=== PATIENT | male | born 1955 | race Caucasian/White ===

== ENCOUNTER 2023-07-13 00:21 | Day surgery (SDC) | payer MEDICARE, SELFPAY ==
[2023-07-06 14:36] VITALS: BMI 31.6
--- NOTE | 2023-07-12 09:39 | WPDANESEPPF ---
Anes - Initial Pre Proc Eval Procedure: Operation Date: 07/13/23 12:30 Proposed Procedures p Screening Colonoscopy - Jozef Castaneda MD Date/Time: 07/12/23 09:39 Surgeon: Jozef Castaneda MD Pre Op Diagnosis: neoplasm screening Patient Data Age: 67 Gender: M Height: 1.93 m Weight: 118 kg Allergies Allergy/AdvReac Type Severity Reaction Status Date / Time lisinopril Allergy Unknown Unknown Verified 07/13/23 11:06 Home Medications Medication Instructions Recorded Confirmed Type aspirin 81 mg tablet,delayed 81 mg PO DAILY 10/02/19 07/13/23 History release (Adult Low Dose Aspirin) irbesartan 150 1 tablet PO DAILY #90 tabs 10/02/20 07/13/23 Rx mg-hydrochlorothiazide 12.5 mg tablet Trulicity 1.5 mg/0.5 mL 1.5 mg (0.5 mL) subcut WEEKLY 90 10/07/20 07/13/23 Rx subcutaneous pen injector days #6 mL (dulaglutide) flash glucose sensor (FreeStyle #6 ea 10/07/20 07/06/23 Rx Tonio 14 Day Sensor kit) metformin 1,000 mg tablet 1,000 mg PO BID 90 days #180 tabs 10/17/20 07/13/23 Rx albuterol sulfate 90 mcg/actuation 2 puff inhalation Q4H PRN 10/23/20 07/13/23 Rx aerosol inhaler (Ventolin HFA) bronchospasm #8.5 grams glimepiride 2 mg tablet 2 mg PO BID 12/16/21 07/13/23 History atorvastatin 20 mg tablet 20 mg PO DAILY 07/06/23 07/13/23 History dapagliflozin propanediol 10 mg 10 mg PO DAILY 07/06/23 07/13/23 History tablet (Farxiga) famotidine 20 mg tablet 20 mg PO BID 07/06/23 07/13/23 History Patient hx anesthesia problems: none Family hx anesthesia problems: none Results Review: All pre-operative results and documents have been reviewed as part of the pre-operative evaluation. [facility] Past Medical History Medical History (Updated 07/13/23 @ 11:41 by Jozef Castaneda MD) Essential (primary) hypertension GERD (gastroesophageal reflux disease) Mixed hyperlipidemia Type 2 diabetes mellitus with hyperglycemia Surgical History Surgical History H/O arthroscopy of left knee (~1995) H/O arthroscopy of right knee (~2005) History of arthroscopy of shoulder (~2007) Family History Family History Mother Hypertension Family history of diabetes mellitus in first degree relative Diabetes mellitus Family history of cardiovascular disease Father Family history of malignant neoplasm of esophagus Sibling Diabetes mellitus Social History Social History Smoking status: Never smoker Tobacco type: smokeless tobacco Second hand tobacco smoke exposure: No Alcohol intake: current Substance use: never Substance use type: does not use Living arrangements: other Additional living arrangements comments: With jean Richard Final PreProcedure Day of Procedure 07/12/23 09:39 Patient weight: obese Heart: regular rate and rhythm Lungs: clear to auscultation Airway: Mallampati scale class II Neurological: alert and oriented Last oral intake: >/= 8 hours ASA classification: III Emergent: no Anesthetic plan: proceed Anesthesia type and monitoring: general GIVS and standard monitoring Results Review: All pre-operative results and documents have been reviewed as part of the pre-operative evaluation. Informed Consent: The patient's anesthetic plan and its attendant risks and benefits were discussed with the patient/family/POA. Questions were solicited and answers provided to the satisfaction of the patient/family/POA.
[2023-07-13 11:07] VITALS: BP 137/67; PULSE 67; RESP 18; TEMP 36.2; O2SAT 98
[2023-07-13] MEDS: LACTATED RINGERS 1,000 ML 150 ML IV CONT (11:21)
[2023-07-13 11:23] LABS: Glucose Point of Care 116 mg/dl (65-105)
--- NOTE | 2023-07-13 11:40 | PM.HPGS ---
History of Present Illness History of Present Illness Consent: Risks, benefits, and alternatives have been discussed and questions answered. Patient agrees to proceed with procedure. Chief complaint: neoplasm screening Narrative: Jimenez Bond is a 67 year old male Presents for screening colonoscopy. Patient's current weight appetite and bowel movements are normal. Patient denies abdominal pain. He has had no bleeding. Family history noncontributory. Previous colonoscopy 15 years ago was unremarkable. Review of Systems Review of Systems: Review of systems noncontributory. [facility] Past Medical History Medical History (Updated 07/13/23 @ 11:41 by Jozef Castaneda MD) Essential (primary) hypertension GERD (gastroesophageal reflux disease) Mixed hyperlipidemia Type 2 diabetes mellitus with hyperglycemia Surgical History Surgical History H/O arthroscopy of left knee (~1995) H/O arthroscopy of right knee (~2005) History of arthroscopy of shoulder (~2007) Family History Family History Mother Hypertension Family history of diabetes mellitus in first degree relative Diabetes mellitus Family history of cardiovascular disease Father Family history of malignant neoplasm of esophagus Sibling Diabetes mellitus Social History Social History Smoking status: Never smoker Tobacco type: smokeless tobacco Second hand tobacco smoke exposure: No Alcohol intake: current Substance use: never Substance use type: does not use Living arrangements: other Additional living arrangements comments: With sp Meds Home Medications and Allergies Home Medications Medication Instructions Recorded Confirmed Type aspirin 81 mg tablet,delayed 81 mg PO DAILY 10/02/19 07/13/23 History release (Adult Low Dose Aspirin) irbesartan 150 1 tablet PO DAILY #90 tabs 10/02/20 07/13/23 Rx mg-hydrochlorothiazide 12.5 mg tablet Trulicity 1.5 mg/0.5 mL 1.5 mg (0.5 mL) subcut WEEKLY 90 10/07/20 07/13/23 Rx subcutaneous pen injector days #6 mL (dulaglutide) flash glucose sensor (FreeStyle #6 ea 10/07/20 07/06/23 Rx Tonio 14 Day Sensor kit) metformin 1,000 mg tablet 1,000 mg PO BID 90 days #180 tabs 10/17/20 07/13/23 Rx albuterol sulfate 90 mcg/actuation 2 puff inhalation Q4H PRN 10/23/20 07/13/23 Rx aerosol inhaler (Ventolin HFA) bronchospasm #8.5 grams glimepiride 2 mg tablet 2 mg PO BID 12/16/21 07/13/23 History atorvastatin 20 mg tablet 20 mg PO DAILY 07/06/23 07/13/23 History dapagliflozin propanediol 10 mg 10 mg PO DAILY 07/06/23 07/13/23 History tablet (Farxiga) famotidine 20 mg tablet 20 mg PO BID 07/06/23 07/13/23 History Allergies Allergy/AdvReac Type Severity Reaction Status Date / Time lisinopril Allergy Unknown Unknown Verified 07/13/23 11:06 Vital Signs Vital Signs - 24 hr 07/13/23 11:07 Temperature 97.1 F L Pulse Rate 67 Respiratory Rate 18 Blood Pressure 137/67 Pulse Oximetry 98 Oxygen Delivery Room Air Exam Narrative: Physical exam reveals patient to be alert. Vital signs stable. HEENT exam is unremarkable. Patient is anicteric. Lungs are clear to auscultation and percussion. Heart is without murmur or extra sounds. Abdomen bowel sounds are present soft nontender with no organomegaly. Digital external rectal exam normal. Assessment and Plan Assessment and plan (1) Encounter for screening colonoscopy: Code(s): Z12.11 - Encounter for screening for malignant neoplasm of colon Status: Acute Assessment and Plan: Patient presents today for screening colonoscopy. He appears to be at average risk for colon polyps. Further recommendations may be given after endoscopy.
[2023-07-13 13:16] VITALS: BP 120/71; PULSE 72; RESP 14; O2SAT 98
[2023-07-13 13:26] VITALS: BP 110/67; PULSE 60; RESP 14; O2SAT 98
[2023-07-13 13:36] VITALS: BP 112/67; PULSE 60; RESP 18; O2SAT 98
== END 2023-07-13 13:38 | disposition home or self-care (01) ==
PROVIDERS: Visit Provider Internal Medicine Gastroenterology
PROC: 0DJD8ZZ Inspection of Lower Intestinal Tract, Via Natural or Artificial Opening Endoscopic (ICD-10-PCS; CPT 45378; principal; 2023-07-13 12:30)
DX: Z12.11 Encounter for screening for malignant neoplasm of colon (principal); D12.2 Benign neoplasm of ascending colon; D12.3 Benign neoplasm of transverse colon; D12.5 Benign neoplasm of sigmoid colon; K64.8 Other hemorrhoids; I10 Essential (primary) hypertension; E11.9 Type 2 diabetes mellitus without complications; E78.2 Mixed hyperlipidemia; K21.9 Gastro-esophageal reflux disease without esophagitis; Z79.82 Long term (current) use of aspirin; Z79.85 Long-term (current) use of injectable non-insulin antidiabetic drugs; Z79.84 Long term (current) use of oral hypoglycemic drugs; Z79.51 Long term (current) use of inhaled steroids; E66.9 Obesity, unspecified; Z68.30 Body mass index [BMI] 30.0-30.9, adult
CPT/HCPCS: 45385; 82948; 88305; J2704; J7120

== ENCOUNTER → 2023-10-12 09:59 | Outpatient (CLI) | payer MEDICARE, SELFPAY ==
--- NOTE | ~2023-10-12 | XR_ITS ---
AP and lateral views of the bilateral hips Clinical history: Pain Findings: No acute fracture or dislocation is seen. Osseous alignment is anatomic. Bilateral hip and SI joint spaces are preserved. Soft tissues are unremarkable. Impression: No significant abnormality is seen. Reviewed, dictated and finalized at [facility]. [employer]PER[employer] Impression: No significant abnormality is seen.
== END ==
PROVIDERS: PCP Family Medicine; Visit Provider Family Medicine
DX: M25.551 Pain in right hip (principal); M25.552 Pain in left hip
CPT/HCPCS: 73521

== ENCOUNTER 2023-10-12 10:25 | Outpatient (CLI) | payer MEDICARE, SELFPAY ==
[2023-10-12 13:25] LABS: Alanine Aminotransferase 25 U/L (6-50); Albumin Level 4.6 g/dL (3.5-5.1); Alkaline Phosphatase 59 U/L (38-126); Anion Gap 11 mmol/L (8-16); Aspartate Amino Transferase 34 U/L (17-59); Bilirubin,Total 0.5 mg/dL (0.2-1.3); Blood Urea Nitrogen 24 mg/dL (9-20); Calcium 9.8 mg/dL (8.4-10.2); Carbon Dioxide 22 mmol/L (22-30); Chloride 106 mmol/L (98-107); Estimated Glomerular Filt Rate > 60; Glucose 168 mg/dL (65-110); Potassium 4.4 mmol/L (3.4-5.0); Sodium 139 mmol/L (137-145)
[2023-10-12 13:43] LABS: Prostate Specific Antigen 0.5 ng/mL (< OR = 4.0)
== END 2023-10-12 10:26 | disposition home or self-care (01) ==
LOC: ANHGOSHLAB 10:26
PROVIDERS: PCP Family Medicine; Visit Provider Family Medicine
DX: Z12.5 Encounter for screening for malignant neoplasm of prostate (principal); Z13.228 Encounter for screening for other metabolic disorders
CPT/HCPCS: 36415; 80053; 84153; G0103

== ENCOUNTER 2023-10-18 12:52 | Outpatient (RCR) | payer MEDICARE, SELFPAY ==
--- NOTE | 2023-10-18 14:04 | PTOPEVAL1 ---
Assessment and note entered by Walter Srivastava Evaluation Information Assessment Status Evaluation Diagnosis right hip pain Onset 10/14/23 Subjective Information Pt. reports that he has developed recent pain in both butt cheeks. He reports that he cannot sit in the car for greater than 20 minutes without pain. He reports that the pain can go down the back of the thighs. He reports that pain will come and go. He states that pain can vary and is most associated with being in one position for a long period of time. He states that he will have occasional pain with getting out of a chair. He states that he has no numbness or tingling associated with the pain. He states that his goal is to reduce his buttock pain. Reported Pain Level Pain Score 0: Self Report Assessment PT Clinical Summary Pt. is a 67 year old male who enters the clinic with bilateral hip pain. Pt. presentation is consistent with lumbar radiculopathy on this date. He currently presents with impaired strength of the l.e. and abdominals, impaired trunk mobility, impaired postural awareness and pain. Continued skilled PT is indicated in order to improve these areas to allow the pt. to be able to complete all IADL's without limitation. Plan of Care Interventions Electrical Stimulation,Hot Pack/Cold Pack,Manual Therapy,Mechanical Traction,Neuro Re-education, Patient/Caregiver Educati,Therapeutic Activities, Therapeutic Exercise PT Services Indicated Yes Treatment Frequency and 1x/week x 5 visits Duration These treatments will address the objective and functional deficits as defined above. The patient will be advanced safely and appropriately in order for the patient to progress towards his/her prior level of function. Additional exercises will be introduced and as well as a comprehensive home exercise program upon discharge, if needed, ?to ensure carryover of functional gains achieved in the clinic. This treatment plan has been reviewed and agreement upon by the patient.
--- NOTE | 2023-10-18 14:08 | OPREHPOC ---
Outpatient Therapy Plan of Care This is a Multidisciplinary Plan of Care that may contain components documented by all disciplines (PT, OT, and ST.) PT Problem 1 PT Problem #1 Knowledge Deficit PT Goal 1 Goal Pt. will be indpendent with a HEP addressing trunk mobility and core stability. Target Visit 2 PT Problem 2 PT Problem #2 Impaired Strength PT Goal 1 Goal Pt. will present with good lower and oblique abdominal strength. Target Visit 5 PT Problem 3 PT Problem #3 Impaired Functional Mobil PT Goal 1 Goal Pt. will present with ability to stand for duration of 1 hour and sit for duration of 1 hour with 1/10 pain at worst.
--- NOTE | 2023-11-12 07:19 | OPREHPOC ---
Outpatient Therapy Plan of Care This is a Multidisciplinary Plan of Care that may contain components documented by all disciplines (PT, OT, and ST.) PT Problem 1 PT Problem #1 Knowledge Deficit PT Goal 1 Goal Pt. will be indpendent with a HEP addressing trunk mobility and core stability. Target Visit 2 Progress Met PT Problem 2 PT Problem #2 Impaired Strength PT Goal 1 Goal Pt. will present with good lower and oblique abdominal strength. Target Visit 5 Progress Not Met PT Problem 3 PT Problem #3 Impaired Functional Mobil PT Goal 1 Goal Pt. will present with ability to stand for duration of 1 hour and sit for duration of 1 hour with 1/10 pain at worst. Progress Met
--- NOTE | 2023-11-12 07:19 | PTOPDC ---
Assessment and note entered by JT File, PT Evaluation Information Assessment Status Discharge Diagnosis right hip pain Onset 10/14/23 Subjective Information patient reports he feels good today. he reports no pain in the R hip. he reports he has a kosovan ball now at home, and would like to get some exercises to do with that. he reports he is ready to make today his last therapy. Assessment PT Clinical Summary mr. huang presents to skilled PT today with no complaints of pain. he has met 2/3 goals, and reports he is ready to DC to and independent HEP. patient was given HEP for kosovan ball core exercises, and will DC skilled PT today. Plan of Care PT Services Indicated Yes
== END 2023-11-09 20:00 | disposition home or self-care (01) ==
LOC: CHSPT 12:52
PROVIDERS: Visit Provider Family Medicine
DX: M25.551 Pain in right hip (principal)
CPT/HCPCS: 97110; 97161

== ENCOUNTER 2025-04-02 08:23 | Outpatient (RCR) | payer MEDICARE, SELFPAY ==
--- NOTE | 2025-04-02 09:00 | OPREHPOC ---
Outpatient Therapy Plan of Care This is a Multidisciplinary Plan of Care that may contain components documented by all disciplines (PT, OT, and ST.) PT Problem 1 PT Problem #1 Knowledge Deficit PT Goal 1 Goal / Goal Update Independent and compliant with HEP Target Visit 2 PT Problem 2 PT Problem #2 Impaired Strength PT Goal 1 Goal / Goal Update Pt to improve bilat hip flexion and abduction strength to 5/5. Pt to improve lower abdominal strength to 4/5. Target Visit 8 PT Problem 3 PT Problem #3 Impaired Functional Mobility PT Goal 1 Goal / Goal Update Pt to be able to sit for more than 2 hours without onset of pain. Pt to be able to stand up to walk without pain for the last 5 days. Target Visit 8 PT Problem 4 PT Problem #4 Impaired Flexibility PT Goal 1 Goal / Goal Update Pt to improve hamstring length to -15 bilaterally. Pt to improve external rotation flexibility to 20 degrees of hip IR. Target Visit 8
--- NOTE | 2025-04-02 09:00 | PTOPEVAL1 ---
Assessment and note entered by Sue Bailey, PT Evaluation Information Assessment Status Evaluation ICD-10 Condition Codes (PT) Pain in low back M54.50 Other ICD-10 Condition Codes ( M46.1 PT) Onset 10/02/24 Subjective Information Pt reports onset of back and hip pain at least 6 months ago. He reports the pain comes and goes depending on the activity. He states there are times when he stands up out of a chair to walk and he feels sharp pain down his legs (worse on R than on L), and he occasionally feels like his legs will give out. He got a cortisone shot in the low back last week and hasn't had any pain since. Reported Pain Level Pain Score 0: Self Report Assessment PT Clinical Summary Mr. Bond is a 69 yo male who enters the clinic with reports on low back pain radiating down both legs. This pain is sharp in nature and caused him difficulty with prolonged sitting and with standing up to walk. He currently has no pain following cortisone injection last week, however he demonstrates bilateral hip weakness and limitations in hip internal rotation. He will benefit from skilled PT intervention to improve strength, flexibility and pain to be able to perform daily tasks without interference from pain or radicular symptoms. Plan of Care Interventions Electrical Stimulation,Gait Training,Hot Pack/Cold Pack,Manual Therapy,Mechanical Traction,Neuro Re- education,Patient/Caregiver Education,Therapeutic Activities,Therapeutic Exercise,Self-Care/Home Management PT Services Indicated Yes Treatment Frequency and 2x/week for 8 visits Duration These treatments will address the objective and functional deficits as defined above. The patient will be advanced safely and appropriately in order for the patient to progress towards his/her prior level of function. Additional exercises will be introduced and as well as a comprehensive home exercise program upon discharge, if needed, ?to ensure carryover of functional gains achieved in the clinic. This treatment plan has been reviewed and agreement upon by the patient.
--- NOTE | 2025-04-30 08:44 | PCPTNOTE ---
Mr. Bond contacted the clinic today. He stated that he was doing great and continued to do his exercise program at home. He requested to be discharged from PT. Reviewing pt. chart he has advanced through a comprehensive rehab program. He will be discharged from our care at this time.
--- NOTE | 2025-04-30 08:50 | PCPTNOTE ---
Mr. Bond contacted the clinic today stating that he was feeling great. He states that he is doing his exercise at home without complication. He has been advanced through a comprehensive exercise program. He is appropriate for discharge at this time.
== END 2025-04-25 20:00 | disposition home or self-care (01) ==
LOC: CHSPT 08:23
PROVIDERS: Visit Provider Orthopaedic Surgery
DX: M46.1 Sacroiliitis, not elsewhere classified (principal)
CPT/HCPCS: 97110; 97112; 97161